=== PATIENT | female | born 1990 | race Caucasian/White ===

== ENCOUNTER 2021-01-17 09:19 | Outpatient (RCR) | payer BC, SELFPAY ==
--- NOTE | 2021-01-17 16:03 | STOPEVAL ---
Addendum entered by CK Ornelas 06/05/21 15:42: EVALUATION/DISCHARGE: Original Note: SPEECH THERAPY EVALUATION: Thank you for referring Yumiko Saavedra to [facility].? Attending Provider: Aram Galan MD Outpatient Past Medical History Past Medical History Source of Past Medical History Patient Respiratory History Hx Other Respiratory Disorders Yes: awakes with the sensation that her air is being cut off Evaluation Information Problem Diagnosis vocal cord dysfunction Additional Evaluation Detail Pt reported that her complaint is more with swallowing versus a voice issue; however, she also reported she had a modified barium swallow at another facility which was within normal limits. She reports having difficulty with solids. Report from pt as well as ENT, is not significant for any organic vocal cord deficit. Subjective Information Pt appears very frustrated re Query Text:As Reported By Patient/ healthcare thus far as she Family states that her neck is now swollen and she feels increasingly fatigued and loosing weight. Diagnostic Tests Other Tests For This Problem Yes: modified barium swallow Previous Treatments Previous Treatments For This Problem No previous Speech Therapy Prior Level of Function Activity Level (Last 3 Months) Occupation RN Activity of Daily Living Ability Independent Home Setting Living Situation With Minor Child Prior Swallow Level Prior Intake Method Oral Prior Diet Regular (Level 7 Diet) Prior Liquid Consistency Thin (Level 0 Diet) Prior Cognition/Communication Prior Communication Level No Impairment,Aphasia Prior Ability to Handle Finances Independent Bedside Swallow Evaluation General Reports Dysphagia Yes Related History thyroid nodules History of Feeding Problems Previous Swallow Evaluation, Weight Loss Reported Difficult Consistencies Solids,Pills History of Dysphagia No Other Factors Impacting Dysphagia None History of Pneumonia No Intake Method Prior to Swallow Oral Evaluation Diet Prior to Swallow Evaluation Regular, Level 7 Liquid Consistency Prior to Swallow Thin (0) Evaluation Cognition During Swallowing Alert,Attentive Consistency Solid Consistency Method of Presentation Finger/Hand Behaviors Observed Apparently Normal Swallow Occurrence of Coughing
== END 2021-04-02 11:33 | disposition home or self-care (01) ==
LOC: ANHST 09:19
PROVIDERS: PCP Family Medicine; Visit Provider Otolaryngology
DX: J38.3 Other diseases of vocal cords (principal)
CPT/HCPCS: 92524; 92610

== ENCOUNTER 2021-01-24 08:52 | Outpatient (CLI) | payer BC, SELFPAY ==
--- NOTE | ~2021-01-24 | US_ITS ---
EXAMINATION: US thyroid DATE: 01/24/2021 09:27 INDICATION: Nontoxic goiter TECHNIQUE: Multiple ultrasound images of the thyroid were obtained. COMPARISON: None. FINDINGS: The right thyroid lobe measures 4.5 x 2.1 x 1.5 cm. The left thyroid lobe measures 4.3 x 1.5 x 0.9 c m. Thyroid isthmus measures 3 to 4 mm in thickness. Wider than tall 1.6 x 1.1 x 0.7 cm mixed solid an d cystic isoechoic nodule with ill-defined margins, increased vascular flow on color Doppler without echogenic foci (TI-RADS 2, not suspicious, no FNA recommended) located at the right side of the thyro id isthmus. 12 mm wider than tall very hypoechoic solid nodule with smooth margins and without echoge david foci along the inferior margin of the right thyroid lobe (TI-RADS 4, moderately suspicious , FNA if >=1.5 cm, annual followup is >=1 cm). Additional 5 mm TI RADS 4 nodule with similar imaging featur es in the left thyroid lobe. 1.4 cm wider than tall solid isoechoic nodule with ill-defined margins a nd without echogenic foci at the left side of the thyroid isthmus (TI-RADS 3, mildly suspicious , FNA if >=2.5 cm, annual followup is >=1.5 cm). IMPRESSION: 1. Multinodular goiter. Recommend annual follow-up ultrasound based upon the 12 mm TI RADS 4 nodule a t the inferior right thyroid. Reviewed, dictated and finalized at location A. IMPRESSION: 1. Multinodular goiter. Recommend annual follow-up ultrasound based upon the 12 mm TI RADS 4 nodule at the inferior right thyroid.
== END 2021-01-24 08:53 | disposition home or self-care (01) ==
LOC: ANHIMG 08:57
PROVIDERS: PCP Family Medicine; Visit Provider Otolaryngology
DX: E04.9 Nontoxic goiter, unspecified (principal); R13.10 Dysphagia, unspecified
CPT/HCPCS: 76536